=== PATIENT | male | born 1955 | race Caucasian/White ===

== ENCOUNTER 2022-08-12 15:08 | Inpatient (IN) ==
[2022-08-12] MEDS ORDERED: Prochlorperazine 5 mg/ml 2 ml VIAL (10 mg) IV ONE (15:23)
[2022-08-12] MEDS ORDERED: Lactated Ringers 1000 ml BAG 1,000 ML IV ONE (15:28)
[2022-08-12 16:16] LABS: ABS Monocytes 0.4 10^3/ul (0-0.8); ABS Neutrophils 10.1 10^3/ul (1.5-7.7); Eosinophil % 0.2 %; Hematocrit 42 % (42-52); Hemoglobin 14.6 g/dL (14.0-18.0); Lymphocyte % 8.8 %; Mean Corpuscular Hemoglobin 33 pg (27-31); Mean Corpuscular Hgb Conc 35 g/dL (31-36); Mean Corpuscular Volume 93 fL (80-94); Mean Platelet Volume 8.3 fL (7.4-10.4); Platelet Count 215 10^3/uL (150-450); Red Cell Distribution Width 13 % (10-15); White Blood Count 11.5 10^3/uL (3.5-10.8)
[2022-08-12 16:51] LABS: ALT 20 U/L (7-52); AST 16 U/L (13-39); Albumin 4.2 g/dL (3.2-5.2); Alkaline Phosphatase 72 U/L (35-149); Anion Gap 12 mmol/L (2-11); Blood Urea Nitrogen 22 mg/dL (6-24); CO2 Carbon Dioxide 18 mmol/L (22-32); Calcium 8.4 mg/dL (8.6-10.3); Chloride 110 mmol/L (101-111); Creatinine, Serum 0.68 mg/dL (0.67-1.17); Globulin 2.1 g/dL (2-4); Glucose 139 mg/dL (70-100); Potassium 3.9 mmol/L (3.5-5.0); Sodium 140 mmol/L (135-145); Total Protein 6.3 g/dL (6.4-8.9); eGFR CKD-EPI 102.5 (>60)
[2022-08-12 17:57] LABS: High Sensitivity Troponin 1 Hr 115 pg/mL (<20)
[2022-08-12 19:32] LABS: C Reactive Protein < 1.00 mg/L (<8.01); Magnesium 1.8 mg/dL (1.9-2.7)
[2022-08-12 19:49] LABS: TSH Ultra Thyroid Stim Horm 0.85 mcIU/mL (0.34-5.60)
[2022-08-12 19:51] LABS: Free T4 0.74 ng/dL (0.61-1.12)
[2022-08-12 20:00] LABS: Folate 12.47 ng/mL (5.90-24.80); Vitamin B12 225 pg/mL (180-914)
[2022-08-13] MEDS ORDERED: Magnesium Sulfate 2 gm BAG 2 GM/50 ML BAG IVPB ONE (00:31)
[2022-08-13 07:07] LABS: ABS Basophils 0.1 10^3/ul (0-0.2); ABS Eosinophils 0.2 10^3/ul (0-0.6); ABS Lymphocytes 3.1 10^3/ul (1.0-4.8); ABS Monocytes 0.7 10^3/ul (0-0.8); ABS Neutrophils 8.6 10^3/ul (1.5-7.7); Eosinophil % 1.3 %; Hematocrit 39 % (42-52); Hemoglobin 13.3 g/dL (14.0-18.0); Lymphocyte % 24.2 %; Mean Corpuscular Hemoglobin 31 pg (27-31); Mean Corpuscular Hgb Conc 34 g/dL (31-36); Mean Corpuscular Volume 91 fL (80-94); Mean Platelet Volume 7.7 fL (7.4-10.4); Platelet Count 210 10^3/uL (150-450); Red Blood Count 4.25 10^6 /uL (4.18-5.48); Red Cell Distribution Width 13 % (10-15); White Blood Count 12.7 10^3/uL (3.5-10.8)
[2022-08-13 07:36] LABS: Creatinine, Serum 0.76 mg/dL (0.67-1.17); Magnesium 2.3 mg/dL (1.9-2.7); Potassium 3.9 mmol/L (3.5-5.0); eGFR CKD-EPI 99.1 (>60)
[2022-08-13] MEDS: Enoxaparin 40 MG/0.4 ML SYR SUBCUT SCH (09:33)
[2022-08-13] MEDS: CITALOPRAM 20 MG PO SCH (09:34)
[2022-08-14 06:36] LABS: ABS Basophils 0.1 10^3/ul (0-0.2); ABS Eosinophils 0.2 10^3/ul (0-0.6); ABS Lymphocytes 2.8 10^3/ul (1.0-4.8); ABS Monocytes 0.6 10^3/ul (0-0.8); ABS Neutrophils 5.2 10^3/ul (1.5-7.7); Eosinophil % 1.8 %; Hematocrit 39 % (42-52); Hemoglobin 13.5 g/dL (14.0-18.0); Lymphocyte % 31.7 %; Mean Corpuscular Hemoglobin 32 pg (27-31); Mean Corpuscular Hgb Conc 35 g/dL (31-36); Mean Corpuscular Volume 91 fL (80-94); Mean Platelet Volume 7.9 fL (7.4-10.4); Nucleated Red Blood Cells % 0.1; Platelet Count 194 10^3/uL (150-450); Red Blood Count 4.21 10^6 /uL (4.18-5.48); Red Cell Distribution Width 13 % (10-15); White Blood Count 8.7 10^3/uL (3.5-10.8)
[2022-08-14 07:20] LABS: Anion Gap 7 mmol/L (2-11); Blood Urea Nitrogen 22 mg/dL (6-24); CO2 Carbon Dioxide 27 mmol/L (22-32); Calcium 9.2 mg/dL (8.6-10.3); Chloride 105 mmol/L (101-111); Creatinine, Serum 0.82 mg/dL (0.67-1.17); Glucose 88 mg/dL (70-100); Magnesium 2.1 mg/dL (1.9-2.7); Potassium 4.1 mmol/L (3.5-5.0); Sodium 139 mmol/L (135-145); eGFR CKD-EPI 96.9 (>60)
[2022-08-14] MEDS: Enoxaparin 40 MG/0.4 ML SYR SUBCUT SCH (09:11)
[2022-08-14] MEDS ORDERED: Sulfur Hexaflouride MICROSPHR 25 MG VIAL ONE (13:40)
[2022-08-14] MEDS: CITALOPRAM 20 MG PO SCH (15:25)
[2022-08-14 15:30] LABS: C Reactive Protein < 1.00 mg/L (<8.01); Cholesterol 171 mg/dL; HDL Cholesterol 35.4 mg/dL; LDL Cholesterol 69 mg/dL; Triglycerides 334 mg/dL
[2022-08-14 18:57] LABS: Erythrocyte Sed Rate 5 mm/Hr (0-19)
[2022-08-15] MEDS: CITALOPRAM 20 MG PO SCH (09:18)
[2022-08-15] MEDS: Enoxaparin 40 MG/0.4 ML SYR SUBCUT SCH (09:19)
[2022-08-15 10:34] VITALS: BP 120/75
== END 2022-08-15 12:26 | disposition home or self-care (01) | DRG 149 ==
LOC: ED 15:08 → EDHOLD 15:08 → SUATTDRO 18:34 → MEDTELE 08-13 14:44 → SUATTDRO 08-14 14:46
PROVIDERS: ADMIT Student in an Organized Health Care Education/Training Program; ATTEND Internal Medicine